=== PATIENT | female | born 1985 | race Caucasian/White ===

== ENCOUNTER → 2016-07-03 | Outpatient (CLI) | payer OTHER ==
--- NOTE | 2016-07-04 12:51 | ECHOF ---
Referral Reason:CP R07.9, Palpitations R00.2 MEASUREMENTS -------- HEIGHT: 167.6 cm WEIGHT: 61.2 kg BP: 115/56 RVIDd: 2.8 cm (< 3.3) IVSd: 0.7 cm (0.6 - 1.1) LVIDd: 3.8 cm (3.9 - 5.3) LVPWd: 0.8 cm (0.6 - 1.1) IVSs: 0.9 cm LVIDs: 2.9 cm LVPWs: 1.7 cm LA Diam: 2.8 cm (2.7 - 3.8) LAESV Index (A-L): 16.39 ml/m Ao Diam: 3.1 cm (2.0 - 3.7) AV Cusp: 2.3 cm (1.5 - 2.6) MV EXCURSION: 18.894 mm (> 18.000) MV EF SLOPE: 162 mm/s (70 - 150) EPSS: 0.2 cm MV E Calvin: 1.00 m/s MV DecT: 297 ms MV A Calvin: 0.63 m/s MV E/A Ratio: 1.58 RAP: 5.00 mmHg RVSP: 22.84 mmHg FINDINGS -------- Sinus rhythm. This was a technically good study. The left ventricular size is normal. Left ventricular wall thickness is normal. Overall left ventricular systolic function is normal with, an EF between 60 - 65 %. The right ventricle is normal in size. Normal LA size by volume 22+/-6 ml/m2. The right atrium is normal in size. The aortic valve is trileaflet and appears structurally normal. Normal appearing mitral valve. The tricuspid valve appears structurally normal. The pulmonic valve is normal. There is no pulmonic regurgitation present. The aortic root size is normal. The inferior vena cava is mildly dilated. There is no pericardial effusion. CONCLUSIONS -------- 1. Sinus rhythm. 2. Normal appearing mitral valve. 3. The tricuspid valve appears structurally normal. 4. The aortic root size is normal. 5. The inferior vena cava is mildly dilated. 6. There is no pericardial effusion. 7. This was a technically good study. 8. The left ventricular size is normal. 9. Left ventricular wall thickness is normal. 10. Overall left ventricular systolic function is normal with, an EF between 60 - 65 %. 11. The right ventricle is normal in size. 12. Normal LA size by volume 22+/-6 ml/m2. 13. The right atrium is normal in size. 14. The aortic valve is trileaflet and appears structurally normal. IMMIGRATION MANAGER: Aure Carballo RDCS
== END | disposition home or self-care (01) ==
LOC: RADECHMAIN 14:59
PROVIDERS: ATTEND Family Medicine
DX: R07.9 Chest pain, unspecified (principal); R00.2 Palpitations
CPT/HCPCS: 93306

== ENCOUNTER → 2017-04-13 | Outpatient (CLI) | payer OTHER ==
--- NOTE | 2017-04-16 08:12 | MM ---
Reason for exam: clinical finding. History: Patient is nulliparous. Family history of breast cancer in 2 maternal aunts at age 40. Indicated problem(s): lump or thickening in the right breast. Physical Findings: Nurse Summary: 0.5cm nodule in the right breast at 7 o'clock (nurse mj). MG 3D Diag Mammo W/Cad JULIÁN Bilateral CC and MLO view(s) were taken. The breast tissue is heterogeneously dense. This may lower the sensitivity of mammography. There is no discrete abnormality. These results were verbally communicated with the patient and result sheet given to the patient on 04/13/17. ASSESSMENT: Incomplete: need additional imaging evaluation, BI-RAD 0 RECOMMENDATION: Ultrasound of the right breast.
--- NOTE | 2017-04-16 08:36 | USB ---
Reason for exam: additional evaluation requested from abnormal screening. History: Patient is nulliparous. Family history of breast cancer in 2 maternal aunts at age 40. US Breast RT Right breast ultrasound includes all four quadrants, the retroareolar region and axilla. Finding demonstrates a 0.9 x 0.5 x 1.0cm oval, solid lesion at 8 o'clock 5cm from nipple, a 0.4 x 0.3 x 0.4cm oval, cystic lesion at 11 o'clock and a 0.9 x 0.3 x 0.6cm oval, cystic cluster at 10 o'clock. These results were verbally communicated with the patient and result sheet given to the patient on 04/13/17. ASSESSMENT: Suspicious, BI-RAD 4 RECOMMENDATION: Ultrasound core biopsy of the right breast. (8 o'clock) Called Dr. Anderson with mammographic findings and has scheduled an appointment for the patient for 04/24/17 at 11:[address] Ozuna. Biopsy scheduled for 04/18/17 at 2:20. PRELIMINARY REPORT CALLED AND FAXED TO DR. OZUNA ON 04/16/17.
== END | disposition home or self-care (01) ==
LOC: RADMAMWWP 08:53
PROVIDERS: ATTEND Obstetrics & Gynecology
DX: N60.01 Solitary cyst of right breast (principal); R92.8 Other abnormal and inconclusive findings on diagnostic imaging of breast
CPT/HCPCS: 77066; 76641; G0279

== ENCOUNTER → 2017-04-18 | Day surgery (SDC) | payer OTHER ==
[2017-04-18 13:52] VITALS: TEMP 98.1; BMI 22.4
[2017-04-18 15:46] VITALS: BP 115/67; PULSE 65; RESP 15
--- NOTE | 2017-04-18 16:40 | USB ---
EXAMINATION TYPE: US biopsy breast VAD RT DATE OF EXAM: 04/18/2017 CLINICAL HISTORY: R92.8 Abnormal Mammogram. Abnormal ultrasound. TECHNIQUE: Ultrasound guided core biopsy of right breast. COMPARISON: 04/13/2017 ultrasound FINDINGS: The procedure of ultrasound guided core biopsy was explained to the patient. Benefits, alternatives, and risks were discussed. An informed consent was then obtained. The patient was placed in supine positioning for imaging and for the procedure. The overlying skin was prepped and draped in usual sterile fashion. Lidocaine buffered with bicarbonate was used as anesthetic into the skin and subcutaneous tissue up to area of concern in the right breast. A johnathan was made with surgical scalpel. The lesion was raised with a bolus of lidocaine away from the chest wall. The mammotome needle was slid underneath this lesion but appear to follow a from the biopsy needle. Rotated towards the lesion and under ultrasound guidance 5 core samples were obtained. There is some diminished size of the lesion following biopsy. Under ultrasound guidance, a 12-gauge vacuum assisted biopsy gun device was used to obtain 5 core samples. Following this, a biopsy clip was left in the lesion. The patient tolerated the procedure well without any immediate complication. The patient was kept in the radiology department for short stay after the procedure and then discharged home in stable condition. Attempts of a postprocedure mammogram with localization of the placed clip was unsuccessful, likely due to patient body habitus. IMPRESSION: 1. Successful ultrasound-guided vacuum-assisted core biopsy right breast lesion. Pathology Results: Benign BREAST, RIGHT, CORE BIOPSY: FIBROCYSTIC CHANGE (STROMAL FIBROSIS, CYST FORMATION, ADENOSIS, COLUMNAR CELL CHANGE, AND DUCT HYPERPLASIA). Recommendation Follow up ultrasound of the right breast in 6 months. SKY
--- NOTE | 2017-04-20 12:06 | MM ---
Reason for exam: additional evaluation requested from abnormal screening. Last mammogram was performed less than 1 month ago. History: Patient is nulliparous. Family history of breast cancer in 2 maternal aunts at age 40. MG Diagnostic Mammo RT Wo CAD XCCL, MLO, and LM view(s) were taken of the right breast. Prior study comparison: April 13, 2017, bilateral MG 3d diag mammo w/cad JULIÁN. ASSESSMENT: Post procedure mammogram for marker placement RECOMMENDATION: Ultrasound of the right breast in 6 months. PENDING PATHOLOGY RESULTS.
== END ==
LOC: RADUSWWP 13:30
PROVIDERS: ATTEND Surgery
DX: N60.31 Fibrosclerosis of right breast (principal); N60.01 Solitary cyst of right breast; N60.21 Fibroadenosis of right breast; R92.8 Other abnormal and inconclusive findings on diagnostic imaging of breast; N60.91 Unspecified benign mammary dysplasia of right breast; Z80.3 Family history of malignant neoplasm of breast; Z88.2 Allergy status to sulfonamides
CPT/HCPCS: 88305; 77065; 19083; A4648; J2001

== ENCOUNTER 2017-05-15 07:25 | Day surgery (SDC) | payer OTHER ==
[2017-05-04 08:39] VITALS: BMI 22.4
[~2017-05-15 07:25] MED LIST: ALPRAZolam 0.5 MG TAB PO PRN; DEXAMETHASONE SOD PHOSPHATE 10 MG/ML 1 ML VIAL IV ONE; HYDROmorphone 0.5 MG/0.5 ML SYRINGE IVP PRN; LACTATED RINGERS 1,000 ML IV SCH; ONDANSETRON 4 MG/2 ML VIAL IVP ONE; Pre Op ABX Message 1 EACH MISC MISCELLANE ONE
[2017-05-15] MEDS ORDERED: SODIUM BICARB 4% 5 ML VIAL (0.48 MEQ/ML) MISCELLANE ONE (09:26)
[2017-05-15] MEDS ORDERED: LIDOCAINE 1% INJ 10MG/ML (20 ML MDV) SQ ONE ×2 (09:26→12:31)
[2017-05-15 09:58] VITALS: TEMP 98.3
[2017-05-15] MEDS ORDERED: HEPARIN SODIUM,PORCINE 5,000 UNIT/ML 1 ML VIAL SQ ONE (11:27)
--- NOTE | 2017-05-15 13:29 | P.OP ---
Date of Procedure: 05/15/17 Preoperative Diagnosis: Radiographic abnormality right breast as well as probable change at the site, patient underwent a core biopsy which was concern that this was discordant with radiographic findings she was therefore recommended to undergo an open biopsy with needle localization Postoperative Diagnosis: same Procedure(s) Performed: needle Localization excisional biopsy area of concern right breast Anesthesia: local Surgeon: April Crowley Estimated Blood Loss (ml): 2 IV fluids (ml): 100 Pathology: other (Breast tissue) Condition: stable Disposition: PACU Indications for Procedure: Radiographic abnormality right breast, core biopsy felt to be discordant and therefore frozen biopsy recommended after discussion with radiology Operative Findings: The radiographic abnormality in the right breast was localized via radiology. The patient was taken to the operating room and the right breast was prepped and draped in a sterile fashion. One percent lidocaine was used to anesthetize the area of concern. Incision was made and carried down to the needle. Surrounding tissue was excised. Within this tissue there appeared to be a palpable abnormality. The specimen was painted for orientation and sent to radiology; radiographic evidnce the area of concern had been removed was obtained. After being assured that hemostasis was attained the wound was well irrigated. Several deep sutures of 3-0 Vicryl were placed. This was followed by closure of the skin with 4-0 Monocryl. Steri-Strips were applied. The patient tolerated the procedure in stable condition. All instrument and sponge counts were correct at the end of the case.
--- NOTE | 2017-05-15 13:30 | P.DS ---
Providers Attending physician: April Crowley Primary care physician: Constantine Mcmullen Plan - Discharge Summary New Discharge Prescriptions: No Action Crd-Opfv-Srytc Acid [-U Capsule (formulary)] 1 cap PO DAILY Discharge Medication List Yur-Rcfc-Pkero Acid [-U Capsule (formulary)] 1 cap PO DAILY [History] Follow up Appointment(s)/Referral(s): April Crowley MD [STAFF PHYSICIAN] - 1 Week Activity/Diet/Wound Care/Special Instructions: may shower after 48 hours Discharge Disposition: HOME SELF-CARE
[2017-05-15 13:35] VITALS: PULSE 67
--- NOTE | 2017-05-15 13:50 | USB ---
EXAMINATION TYPE: US breast localization RT, Postprocedure digital right breast mammogram US breast surgical specimen RT Right breast specimen mammogram DATE OF EXAM: 05/15/2017 CLINICAL HISTORY: 31-year-old female with a family history of breast cancer in two aunts; recent ultrasound-guided right breast biopsy. Benign results which may be discordant, referred for excision. TECHNIQUE: Ultrasound-guided needle localization with wire placement and surgical excision of area of concern in the 8:00 right breast. COMPARISON: 04/18/2017 FINDINGS: The procedure of needle localization with wire placement and than surgical excision was explained to the patient. Benefits, alternatives, and risks were discussed. An informed consent was then obtained. Ultrasound guidance was utilized due to far posterior positioning of the clip. It could not be visualized on the postprocedure mammograms. The shortest pathway for procedure was chosen. Shortest pathway was a lateral approach. The overlying skin was prepped and draped in usual sterile fashion. Lidocaine buffered with bicarbonate was used as anesthetic into the skin and subcutaneous tissue up to the level of area of concern. A 5 cm Kopans needle was used. It was placed via a lateral approach under ultrasound guidance. The needle was passed through the lesion. The needle was withdrawn leaving the wire in place. The lesion was centered along the distal half thick segment of the wire. This was discussed with the surgeon. The wire was fixed to patient's skin. Ultrasound images were marked for the surgeon. Post procedure mammographic views were obtained for the surgeon. The patient tolerated the procedure well without any immediate complication. The patient was kept in the radiology department for short stay after the procedure and then taken to surgery for surgical excision. Mammographic specimen showed wire and clip. The ultrasound specimen showed appropriate excision of the lesion in question. The patient was kept in hospital for short stay after the procedure and then discharged home in stable condition. IMPRESSION: Successful, uncomplicated ultrasound-guided needle localization with wire placement and surgical excision of 8:00 right breast mass; full pathology results to follow. Pathology Results: Benign BREAST, RIGHT, NEEDLE LOCALIZATION EXCISION: PROLIFERATIVE FIBROCYSTIC CHANGES INCLUDING FOCAL NODULAR ADENOSIS AND FIBROADENOMATOID HYPERPLASIA, USUAL TYPE DUCTAL HYPERPLASIA, CYSTS, AND COLUMNAR CELL HYPERPLASIA. Recommendation Follow up mammogram of the right breast in 6 months. SKY
[2017-05-15 13:57] VITALS: BP 110/66; RESP 16
== END 2017-05-15 14:18 | disposition home or self-care (01) ==
LOC: OR 07:25
PROVIDERS: ATTEND Surgery
DX: N60.11 Diffuse cystic mastopathy of right breast (principal); N60.91 Unspecified benign mammary dysplasia of right breast; N60.21 Fibroadenosis of right breast; R00.2 Palpitations; Z88.1 Allergy status to other antibiotic agents; Z88.2 Allergy status to sulfonamides
CPT/HCPCS: 81025; 88307; 77065; 76098; 76999; 19285; 19125; J2001

== ENCOUNTER → 2017-11-15 | Outpatient (CLI) | payer OTHER ==
--- NOTE | 2017-11-16 10:48 | USB ---
Reason for exam: follow-up at short interval from prior study. History: Patient is nulliparous. Family history of breast cancer in 2 maternal aunts at age 40. Benign US breast surgical specimen RT of the right breast, May 15, 2017. Benign US breast localization RT of the right breast, May 15, 2017. Benign US biopsy breast VAD RT of the right breast, April 18, 2017. Physical Findings: Nurse did not find any significant physical abnormalities on exam. US Breast RT Right complete breast ultrasound includes all four quadrants, the retroareolar region and axilla. Finding demonstrates four oval, cystic lesions measuring 0.5 x 0.5 x 0.3cm at 9 o'clock, a 0.4 x 0.5 x 0.2cm at 10 o'clock, 1.0 x 1.2 x 0.4cm at 11 o'clock and 0.6 x 0.6 x 0.3cm at 11 o'clock. These results were verbally communicated with the patient and result sheet given to the patient on 11/15/17. ASSESSMENT: Probably benign, BI-RAD 3 RECOMMENDATION: Ultrasound of the right breast in 6 months.
== END | disposition home or self-care (01) ==
LOC: RADUSWWP 14:12
PROVIDERS: ATTEND Obstetrics & Gynecology
DX: R92.8 Other abnormal and inconclusive findings on diagnostic imaging of breast (principal)

== ENCOUNTER → 2018-02-25 | Outpatient (CLI) | payer OTHER ==
[2018-02-25 12:31] LABS: ALT 21 U/L (8-44); AST 25 U/L (13-35); Glucose 86 mg/dL (70-110)
[2018-02-25 12:32] LABS: Vitamin D 25 Hydroxy 23.1 ng/mL (30.0-100.0)
[2018-02-25 12:55] LABS: HCG,Quantitative Serum <2.0 mIU/mL
[2018-02-25 14:35] LABS: Thyroid Peroxidase Antibodies <28.0 U/mL (0.0-60.0)
[2018-02-25 14:38] LABS: Insulin Level 4.6 mIU/mL (3.0-25.0)
[2018-02-27 06:42] LABS: Varicella IgM Antibody 0.38 INDEX (<=0.90)
== END | disposition home or self-care (01) ==
LOC: LABWHC1 06:40
PROVIDERS: ATTEND Physician Assistant
DX: N92.6 Irregular menstruation, unspecified (principal)
CPT/HCPCS: 36415; 82306; 82397; 82565; 82670; 82947; 83001; 83036; 83525; 84146; 84402; 84403; 84439; 84443; 84450; 84460; 84481; 84520; 84702; 86376; 86762; 86787; 86800; 86850

== ENCOUNTER → 2018-03-21 | Outpatient (CLI) | payer OTHER | END | disposition home or self-care (01) | LOC: LABWHC1 09:56 | PROVIDERS: ATTEND Obstetrics & Gynecology Reproductive Endocrinology | DX: E03.9 Hypothyroidism, unspecified (principal) | CPT/HCPCS: 36415; 84443 ==

== ENCOUNTER → 2018-05-27 | Outpatient (CLI) | payer OTHER ==
--- NOTE | 2018-05-27 09:22 | USB ---
Reason for exam: clinical finding. History: Patient is nulliparous. Family history of breast cancer in 2 maternal aunts at age 40. Benign US breast surgical specimen RT of the right breast, May 15, 2017. Benign US breast localization RT of the right breast, May 15, 2017. Benign US biopsy breast VAD RT of the right breast, April 18, 2017. Physical Findings: Nurse Summary: Patient complains of bilateral upper outer quadrant lumps, stable in size (nurse mj). US Breast BILAT Right complete breast ultrasound includes all four quadrants, the retroareolar region and axilla. Finding demonstrates a 0.6 x 0.5 x 0.3cm oval, cystic, complex lesion at 9 o'clock, complicated cyst, a 1.0 x 1.5 x 0.5cm cystic cluster at 10 o'clock and a 0.9 x 0.8 x 0.4cm oval node at 10 o'clock. Left complete breast ultrasound includes all four quadrants, the retroareolar region and axilla. Finding demonstrates a 0.3 x 0.6 x 0.2cm oval, cystic complex lesion at 1 o'clock, complicated cyst and a 0.5 x 0.5 x 0.3cm oval, node at 3 o'clock. These results were verbally communicated with the patient and result sheet given to the patient on 05/27/18. ASSESSMENT: Benign, BI-RAD 2 RECOMMENDATION: Routine screening mammogram of both breasts. (annual)
== END ==
LOC: RADUSWWP 06:56
PROVIDERS: ATTEND Obstetrics & Gynecology
DX: N60.01 Solitary cyst of right breast (principal)

== ENCOUNTER → 2018-07-22 | Outpatient (CLI) | payer OTHER ==
[2018-07-22 11:40] LABS: Vitamin D 25 Hydroxy 27.1 ng/mL (30.0-100.0)
[2018-07-22 11:45] LABS: HCG,Quantitative Serum <2.0 mIU/mL
[2018-07-22 18:44] LABS: Hemoglobin A1C 5.3 % (4.0-6.0)
== END | disposition home or self-care (01) ==
LOC: LABWHC1 06:48
PROVIDERS: ATTEND Physician Assistant
DX: N92.6 Irregular menstruation, unspecified (principal)
CPT/HCPCS: 36415; 82306; 82670; 83001; 83036; 84146; 84439; 84443; 84481; 84702; 86787; 86850; 86900; 86901

== ENCOUNTER → 2018-08-06 | Outpatient (CLI) | payer OTHER | END | disposition home or self-care (01) | LOC: LABWHC1 06:47 | PROVIDERS: ATTEND Obstetrics & Gynecology Reproductive Endocrinology | DX: N97.9 Female infertility, unspecified (principal) | CPT/HCPCS: 36415; 84144 ==

== ENCOUNTER → 2018-08-13 | Outpatient (CLI) | payer OTHER ==
[2018-08-13 07:16] LABS: HCG,Quantitative Serum <2.4 mIU/mL
== END ==
LOC: LABWHC1 06:32
PROVIDERS: ATTEND Obstetrics & Gynecology Reproductive Endocrinology
DX: N97.9 Female infertility, unspecified (principal)
CPT/HCPCS: 36415; 84443; 84702

== ENCOUNTER → 2018-09-02 | Outpatient (CLI) | payer OTHER ==
[2018-09-02 08:00] LABS: Basophils % (A) 0 %; Eosinophils # (A) 0.1 k/uL (0-0.7); Eosinophils % (A) 3 %; HCT 42.3 % (34.0-46.0); HGB 14.2 gm/dL (11.4-16.0); Lymphocytes # (A) 1.2 k/uL (1.0-4.8); Lymphocytes % (A) 26 %; MCH 30.8 pg (25.0-35.0); MCHC 33.7 g/dL (31.0-37.0); MCV 91.5 fL (80.0-100.0); Mean Platelet Volume 7.1; Monocytes # (A) 0.3 k/uL (0-1.0); Monocytes % (A) 6 %; Neutrophils # (A) 2.9 k/uL (1.3-7.7); Neutrophils % (A) 63 %; Platelet Count 169 k/uL (150-450); RBC 4.62 m/uL (3.80-5.40); RDW 13.1 % (11.5-15.5); WBC 4.7 k/uL (3.8-10.6)
[2018-09-02 17:00] LABS: ALT 19 U/L (8-44); AST 22 U/L (13-35); Albumin/Globulin Ratio 2.05 (1.60-3.17); Alkaline Phosphatase 46 U/L (41-126); BUN/Creat Ratio 14.44 Ratio (12.00-20.00); Calcium 9.2 mg/dL (8.7-10.3); Carbon Dioxide 23.3 mmol/L (21.6-31.8); Chloride 108 mmol/L (96-109); Cholesterol 144 mg/dL (0-200); Globulin 2.1 g/dL (1.6-3.3); Glucose 88 mg/dL (70-110); Potassium 4.3 mmol/L (3.5-5.5); Sodium 139 mmol/L (135-145); Total Bilirubin 0.4 mg/dL (0.3-1.2); Total Protein 6.4 g/dL (6.2-8.2); Triglycerides <50.0 mg/dL (0.0-149.0); VLDL Calculation 9.98 mg/dL (5.00-40.00)
== END | disposition home or self-care (01) ==
LOC: LABWHC1 07:28
PROVIDERS: ATTEND Family Medicine
DX: Z00.00 Encounter for general adult medical examination without abnormal findings (principal); N97.9 Female infertility, unspecified
CPT/HCPCS: 36415; 80053; 80061; 82306; 84144; 85025

== ENCOUNTER → 2018-09-09 | Outpatient (CLI) | payer OTHER ==
[2018-09-09 08:12] LABS: HCG,Quantitative Serum <2.4 mIU/mL
== END | disposition home or self-care (01) ==
LOC: LABWHC1 07:00
PROVIDERS: ATTEND Obstetrics & Gynecology Reproductive Endocrinology
DX: Z32.00 Encounter for pregnancy test, result unknown (principal)
CPT/HCPCS: 36415; 84443; 84702

== ENCOUNTER → 2018-10-02 | Outpatient (CLI) | payer OTHER | END | disposition home or self-care (01) | LOC: LABWHC1 06:35 | PROVIDERS: ATTEND Obstetrics & Gynecology Reproductive Endocrinology | DX: N97.9 Female infertility, unspecified (principal) | CPT/HCPCS: 36415; 84144 ==

== ENCOUNTER → 2018-10-09 | Outpatient (CLI) | payer OTHER | END | disposition home or self-care (01) | LOC: LABWHC1 06:31 | PROVIDERS: ATTEND Obstetrics & Gynecology Reproductive Endocrinology | DX: Z32.00 Encounter for pregnancy test, result unknown (principal) | CPT/HCPCS: 36415; 84702 ==

== ENCOUNTER → 2018-11-02 | Outpatient (CLI) | payer OTHER | END | disposition home or self-care (01) | LOC: LABWHC1 08:54 | PROVIDERS: ATTEND Obstetrics & Gynecology Reproductive Endocrinology | DX: N97.9 Female infertility, unspecified (principal) | CPT/HCPCS: 36415; 84144 ==

== ENCOUNTER → 2018-11-09 | Outpatient (CLI) | payer OTHER | END | disposition home or self-care (01) | LOC: LABWHC1 09:23 | PROVIDERS: ATTEND Obstetrics & Gynecology Reproductive Endocrinology | DX: Z32.00 Encounter for pregnancy test, result unknown (principal) | CPT/HCPCS: 36415; 84702 ==

== ENCOUNTER → 2018-12-12 | Outpatient (CLI) | payer OTHER ==
[2018-12-13 11:15] LABS: Act Protein C Resist Interp NEG; Activated Protein C Resistance 3.69 (1.60-4.90)
== END | disposition home or self-care (01) ==
LOC: LABWHC1 13:54
PROVIDERS: ATTEND Obstetrics & Gynecology Reproductive Endocrinology
DX: N97.9 Female infertility, unspecified (principal); Z13.0 Encounter for screening for diseases of the blood and blood-forming organs and certain disorders involving the immune mechanism
CPT/HCPCS: 36415; 82397; 83001; 83002; 85307

== ENCOUNTER → 2018-12-20 | Outpatient (CLI) | payer OTHER ==
--- NOTE | 2018-12-20 17:04 | FL ---
EXAMINATION TYPE: FL hysterosalpingography DATE OF EXAM: 12/20/2018 CLINICAL HISTORY: Infertility N97.9. TECHNIQUE: The procedure was explained to the patient, risks complications and alternatives. All ques tions were answered. Informed consent was obtained. A timeout was performed. The patient was placed on the fluoroscopy table in supine view. The speculum was inserted. The vagina l vault was cleansed with Betadine. The cervix was localized. The hysterosalpingogram catheter was pl aced the balloon inflated and contrast was administered through the catheter. 8 mL of contrast was ut ilized. Real-time observation fluoroscopic imaging and overhead radiograph were obtained. Discharge instructions were discussed with the patient. Patient was released in stable condition mark watson tolerated procedure very well. COMPARISON: NONE FINDINGS: Cervical canal appears normal. The balloon was deflated and the cervix was evaluated with spontaneous drainage at the end of the examination. The uterus appears normal. No filling defects or septations are evident. The fallopian tubes are thin and delicate. There is prompt emptying of contrast from the left fallopi an tube with free spill into the pelvis. There is filling of the fimbria end of the right fallopian t ube. Clear spill from the right is difficult to prove definitively. However, fallopian tubes fill eas kathleen and there is increasing contrast within the pelvis. Additionally, suspicious loculated fluid in t he region of the ovaries is not identified. There is free spill of contrast through the pelvis. Fluoroscopy time 1 minute 9 seconds. Images: 14 IMPRESSION: 1. Definite free spill of contrast through the patent left fallopian tube. 2. Suspected patency with prompt fill and flow within the right fallopian tube. Documentation of free spill is more difficult on this right side, although no definite secondary signs to suggest distal o bstruction near the ovary is identified.
== END | disposition home or self-care (01) ==
LOC: RADUSWWP 13:26
PROVIDERS: ATTEND Obstetrics & Gynecology Reproductive Endocrinology
DX: N97.9 Female infertility, unspecified (principal)
CPT/HCPCS: 58340; 74740; Q9967

== ENCOUNTER → 2019-06-26 | Outpatient (CLI) | payer OTHER | END | disposition home or self-care (01) | LOC: LABWHC1 10:37 | PROVIDERS: ATTEND Obstetrics & Gynecology Reproductive Endocrinology | DX: Z13.21 Encounter for screening for nutritional disorder (principal); N97.9 Female infertility, unspecified | CPT/HCPCS: 36415; 82306; 84144 ==

== ENCOUNTER → 2019-06-30 | Outpatient (CLI) | payer OTHER | END | disposition home or self-care (01) | LOC: LABWHC1 11:58 | PROVIDERS: ATTEND Obstetrics & Gynecology Reproductive Endocrinology | DX: Z32.00 Encounter for pregnancy test, result unknown (principal) | CPT/HCPCS: 36415; 84702 ==

== ENCOUNTER → 2019-07-02 | Outpatient (CLI) | payer OTHER | END | disposition home or self-care (01) | LOC: LABWHC1 11:02 | PROVIDERS: ATTEND Obstetrics & Gynecology | DX: N91.2 Amenorrhea, unspecified (principal) | CPT/HCPCS: 36415; 84702 ==

== ENCOUNTER → 2020-06-07 | Outpatient (CLI) | payer OTHER ==
--- NOTE | 2020-06-07 11:01 | ECHOF ---
Referral Reason:R01.1 heart murmur MEASUREMENTS -------- HEIGHT: 167.6 cm WEIGHT: 68.0 kg BP: RVIDd: 3.7 cm (< 3.3) IVSd: 0.8 cm (0.6 - 1.1) LVIDd: 4.6 cm (3.9 - 5.3) LVPWd: 0.9 cm (0.6 - 1.1) IVSs: 1.0 cm LVIDs: 3.0 cm LVPWs: 1.4 cm LAESV Index (A-L): 25.31 ml/m Ao Diam: 2.5 cm (2.0 - 3.7) AV Cusp: 2.1 cm (1.5 - 2.6) MV EXCURSION: 21.333 mm (> 18.000) MV EF SLOPE: 86 mm/s (70 - 150) EPSS: 0.5 cm MV E Calvin: 0.89 m/s MV DecT: 235 ms MV A Calvin: 0.62 m/s MV E/A Ratio: 1.42 RAP: 5.00 mmHg RVSP: 29.89 mmHg FINDINGS -------- Sinus rhythm. This was a technically good study. The left ventricular size is normal. Left ventricular wall thickness is normal. Overall left vent ricular systolic function is normal with, an EF between 55 - 60 %. The diastolic filling pattern is normal for the age of the patient 7.70. The right ventricle is mildly enlarged. Normal LA size by volume 22+/-6 ml/m2. The right atrial size is normal. Interatrial and interventricular septum intact. The aortic valve is trileaflet and appears structurally normal. There is no evidence of aortic regu rgitation. There is no evidence of aortic stenosis. There is trace mitral regurgitation. Mild tricuspid regurgitation present. There is no evidence of pulmonary hypertension. The right v entricular systolic pressure, as measured by Doppler, is 29.89mmHg. There is no pulmonic regurgitation present. The aortic root size is normal. The inferior vena cava is mildly dilated. There is no pericardial effusion. CONCLUSIONS -------- 1. The left ventricular size is normal. 2. Left ventricular wall thickness is normal. 3. Overall left ventricular systolic function is normal with, an EF between 55 - 60 %. 4. The diastolic filling pattern is normal for the age of the patient 7.70 5. The right ventricle is mildly enlarged. 6. There is trace mitral regurgitation. 7. Mild tricuspid regurgitation present. INSOLE BOTTOM FILLER: Ashlyn Correa RDCS
== END ==
LOC: RADECHMAIN 08:23
PROVIDERS: ATTEND Family Medicine
DX: I08.1 Rheumatic disorders of both mitral and tricuspid valves (principal)
CPT/HCPCS: 93306

== ENCOUNTER → 2021-05-30 | Outpatient (CLI) | payer OTHER ==
--- NOTE | 2021-05-30 09:10 | USB ---
Reason for exam: clinical finding. History: Patient is nulliparous. Family history of breast cancer in 2 maternal aunts at age 40. Benign US breast surgical specimen RT of the right breast, May 15, 2017. Benign US breast localization RT of the right breast, May 15, 2017. Benign US biopsy breast VAD RT of the right breast, April 18, 2017. Physical Findings: A clinical breast exam by your physician is recommended on an annual basis and results should be correlated with mammographic findings. US Breast BILAT Right complete breast ultrasound includes all four quadrants, the retroareolar region and axilla. Finding demonstrates a 5 x 5mm oval lymph node at 9 o'clock. Left complete breast ultrasound includes all four quadrants, the retroareolar region and axilla. Finding demonstrates a 4 x 3mm oval lymph node at 3 o'clock and a 4 x 5mm lobular, hypoechoic lesion at 9 o'clock. These results were verbally communicated with the patient and result sheet given to the patient on 05/30/21. ASSESSMENT: Suspicious, BI-RAD 4 RECOMMENDATION: Surgical consultation and ultrasound core biopsy of the left breast. (mammogram can be performed pre and post biopsy) Patient requests to speak with her before scheduling biopsy. Called Dr. Dr. Ortiz's office with mammographic findings. PRELIMINARY REPORT CALLED AND FAXED TO DR. ORTIZ ON 05/30/21.
== END | disposition home or self-care (01) ==
LOC: RADUSWWP 07:38
PROVIDERS: ATTEND Obstetrics & Gynecology
DX: R92.8 Other abnormal and inconclusive findings on diagnostic imaging of breast (principal); Z80.3 Family history of malignant neoplasm of breast

== ENCOUNTER → 2021-10-28 | Outpatient (CLI) | payer OTHER ==
[2021-10-28 11:50] LABS: Basophils # (A) 0.03 X 10*3/uL (0.00-0.10); Basophils % (A) 0.8 %; Eosinophils # (A) 0.11 X 10*3/uL (0.04-0.35); Eosinophils % (A) 2.9 %; HCT 42.1 % (37.2-46.3); Immature Grans, Automated 0.3 %; Lymphocytes # (A) 1.01 X 10*3/uL (0.90-5.00); MCH 29.8 pg (27.0-32.0); MCHC 33.3 g/dL (32.0-37.0); MCV 89.6 fL (80.0-97.0); Mean Platelet Volume 11.3 fL (9.5-12.2); Monocytes # (A) 0.23 X 10*3/uL (0.20-1.00); Monocytes % (A) 6.1 %; NRBC Per 100 WBC 0 /100 WBCS (0.0-0.0); Neutrophils # (A) 2.35 X 10*3/uL (1.80-7.70); Neutrophils % (A) 62.9 %; Platelet Count 176 X 10*3/uL (140-440); RDW 13.2 % (11.5-14.5); WBC 3.74 X 10*3/uL (4.50-10.00)
[2021-10-28 12:02] LABS: Hepatitis B Surface Antigen Nonreactive (Nonreactive); Hepatitis C IgG Antibody Nonreactive (Nonreactive)
[2021-10-28 12:05] LABS: ALT 9 U/L (8-44); AST 22 U/L (13-35); African American GFR (CKD) 82.8 (60.0-200.0); Albumin 4.4 g/dL (3.8-4.9); Albumin/Globulin Ratio 1.57 (1.60-3.17); Alkaline Phosphatase 45 U/L (41-126); Blood Urea Nitrogen 14.9 mg/dL (9.0-27.0); Calcium 9.3 mg/dL (8.7-10.3); Carbon Dioxide 23.3 mmol/L (20.0-27.5); Chloride 105 mmol/L (96-109); Chol/HDL Ratio 2.36 Ratio; Follicle Stimulating Hormone 7.5 mIU/mL; Globulin 2.8 g/dL (1.6-3.3); Glucose 93 mg/dL (70-110); LDL Cholesterol,Calculated 84.8 mg/dL (0.0-131.0); Luteinizing Hormone 9.5 mIU/mL; Non-African American GFR(CKD) 71.4 (60.0-200.0); Potassium 3.9 mmol/L (3.5-5.5); Sodium 140 mmol/L (135-145); Total Protein 7.2 g/dL (6.2-8.2)
== END | disposition home or self-care (01) ==
LOC: LABWHC1 06:58
PROVIDERS: ATTEND Obstetrics & Gynecology Reproductive Endocrinology
DX: Z31.41 Encounter for fertility testing (principal); E03.9 Hypothyroidism, unspecified; E55.9 Vitamin D deficiency, unspecified; N97.9 Female infertility, unspecified
CPT/HCPCS: 36415; 80053; 80061; 82306; 82397; 83001; 83002; 84146; 84443; 85025; 86780; 86803; 87340

== ENCOUNTER → 2021-12-14 | Outpatient (CLI) | payer OTHER | END | disposition home or self-care (01) | LOC: LABWHC1 07:03 | PROVIDERS: ATTEND Obstetrics & Gynecology Reproductive Endocrinology | DX: N96 Recurrent pregnancy loss (principal); E03.9 Hypothyroidism, unspecified | CPT/HCPCS: 36415; 84443 ==

== ENCOUNTER → 2022-01-19 | Outpatient (CLI) | payer OTHER ==
[2022-01-19 13:21] LABS: HCG,Quantitative Serum 41.3 (0.0-6.0)
== END | disposition home or self-care (01) ==
LOC: LABWHC1 07:10
PROVIDERS: ATTEND Obstetrics & Gynecology Reproductive Endocrinology
DX: Z32.00 Encounter for pregnancy test, result unknown (principal); N97.9 Female infertility, unspecified; E03.9 Hypothyroidism, unspecified
CPT/HCPCS: 36415; 82670; 84144; 84443; 84702

== ENCOUNTER → 2022-01-23 | Outpatient (CLI) | payer OTHER | END | disposition home or self-care (01) | LOC: LABWHC1 06:59 | PROVIDERS: ATTEND Obstetrics & Gynecology Reproductive Endocrinology | DX: Z32.00 Encounter for pregnancy test, result unknown (principal) | CPT/HCPCS: 36415; 84702 ==

== ENCOUNTER 2022-08-14 15:56 | Outpatient (CLI) | payer OTHER ==
[2022-08-14] MEDS ORDERED: LACTATED RINGERS 1,000 ML IV SCH (17:00)
[2022-08-14] MEDS ORDERED: TERBUTALINE 1 MG/ML VIAL SQ STA (18:15)
[2022-08-14 19:26] VITALS: BP 122/61; PULSE 74; RESP 18; TEMP 98.4
--- NOTE | 2022-09-14 19:10 | P.MSEPDOC ---
Presenting Problems - Arrival Data Date of Arrival on Unit: 08/14/22 Time of Arrival on Unit: 15:56 Mode of Transport: Ambulatory - Complaint OB-Reason for Admission/Chief Complaint: Possible Onset of Labor Comment: contractions since 1000 this morning every few minutes, pt states isnt painful but feels tightening Medical History - Information : 2 Para: 1 Term: 1 : 0 Abortions: Spontaneous or Elective: 0 Number of Living Children: 1 - Gestational Age Gestational Age by EUGENE (wks/days): 33 Weeks and 4 Days - History Complications: Prior Review of Systems - Review of Systems Constitutional: No problems Breast: No problems ENT: No problems Cardiovascular: No problems Respiratory: No problems Gastrointestinal: No problems Genitourinary: No problems Musculoskeletal: No problems Neurological: No problems Skin: No problems Vital Signs - Temperature Temperature: 98.4 F Temperature Source: Temporal Artery Scan - Pulse Right Pulse Oximetery Pulse Rate: 74 Pulse Assessment Method: Pulse Oximetry - Respirations Respiratory Rate: 18 Oxygen Delivery Method: Room Air O2 Sat by Pulse Oximetry: 100 - Blood Pressure Right Arm Blood Pressure: 122/61 Blood Pressure Mean: 81 Blood Pressure Source: Automatic Cuff Medical Screen Scoring - Uterine Contractions Frequency From (mins): 2 Frequency To (mins): 4 Duration From (seconds): 40 Duration To (seconds): 60 Intensity: Mild Resting: Soft to palpation - Assessment - Baby A Baseline FHR: 135 Heart Rate - NICHD Category: Category I (Normal) NST: Reactive Physician Notification - Physician Notified Physician Notified Date: 08/14/22 Physician Notified Time: 16:25 Physician: Carol Camilo New Order Received: Yes - Notification Comment Comment: ffn negative, cervix closed, thick, high, terbutaline given and contractions better afterwards Maternal Triage Index - Maternal Triage Index Presenting for scheduled procedure w/no complaint: No - Stat/Priority 1 Stat Priority 1: No - Urgent/Priority 2 Urgent Priority 2: Yes Provider Notified: Carol Camilo Provider Notified Time: 16:25 Criteria Met for Priority 2: contractions and 33 4/7 weeks gestation Disposition - Disposition OB Disposition: Discharge to home Discharge Date: 08/14/22 Discharge Time: 19:00 I agree with the RN Medical Screening Exam: Yes Case reviewed; plan agreed upon as documented in EMR&OBIX.: Yes Diagnosis: RELATED CONDITIONS, UNSPECIFIED, THIRD TRIMESTER
== END 2022-08-14 19:00 | disposition home or self-care (01) ==
LOC: FBPOP 15:56
PROVIDERS: ATTEND Obstetrics & Gynecology
DX: O26.893 Other specified pregnancy related conditions, third trimester (principal); O34.219 Maternal care for unspecified type scar from previous cesarean delivery; Z3A.33 33 weeks gestation of pregnancy; Z88.2 Allergy status to sulfonamides
CPT/HCPCS: 59025; 99214; 96360; 96361; 96372; 82731; J3105

== ENCOUNTER 2022-09-21 10:11 | Inpatient (IN) | payer OTHER ==
[2022-09-20 11:28] VITALS: BMI 29.8
[2022-09-21] MEDS ORDERED: CITRIC ACID-SODIUM CITRATE 15 ML CUP PO ONE (10:31)
[2022-09-21] MEDS ORDERED: miSOPROStoL 200 MCG TAB PO PRN (10:31)
[2022-09-21] MEDS ORDERED: OXYTOCIN 10 UNIT/ML 1 ML VIAL IM PRN (10:31)
[2022-09-21] MEDS ORDERED: TRANEXAMIC 1,000 MG/100ML-NACL 1,000 MG in EMPTY BAG 1 BAG IV PRN (10:31)
[2022-09-21] MEDS ORDERED: CARBOPROST TROMETHAMINE 250 MCG/ML 1 ML AMP IM PRN (10:31)
[2022-09-21] MEDS ORDERED: METHYLERGONOVINE 0.2 MG/ML 1 ML AMP IM PRN (10:31)
[2022-09-21] MEDS: LACTATED RINGERS 1,000 ML IV SCH ×2 (10:40→13:10)
[2022-09-21 11:25] LABS: Basophils % (A) 0 %; Eosinophils # (A) 0.1 k/uL (0-0.7); Eosinophils % (A) 1 %; HGB 11.7 gm/dL (11.4-16.0); Lymphocytes # (A) 1.4 k/uL (1.0-4.8); Lymphocytes % (A) 13 %; MCHC 33.5 g/dL (31.0-37.0); MCV 86.6 fL (80.0-100.0); Monocytes # (A) 0.3 k/uL (0-1.0); Monocytes % (A) 3 %; Neutrophils # (A) 8.8 k/uL (1.3-7.7); Neutrophils % (A) 82 %; Platelet Count 181 k/uL (150-450); RBC 4.04 m/uL (3.80-5.40); RDW 13.8 % (11.5-15.5); WBC 10.7 k/uL (3.8-10.6)
[2022-09-21] MEDS ORDERED: DEXAMETHASONE SOD PHOSPHATE 4 MG/ML 1 ML VIAL ONE (12:10)
[2022-09-21] MEDS ORDERED: ONDANSETRON 4 MG/2 ML VIAL ONE (12:10)
[2022-09-21] MEDS ORDERED: PHENYLEPHRINE-0.9% NACL SYG 1,000 MCG/10 ML SYRINGE ONE (12:10)
[2022-09-21] MEDS ORDERED: MORPHINE SULFATE (PF) 0.3 MG/0.3 ML SYR ONE (12:10)
[2022-09-21] MEDS ORDERED: NALBUPHINE 10 MG/ML (10 ML MDV) ONE (12:10)
--- NOTE | 2022-09-21 13:01 | P.HPOB ---
History of Present Illness H&P Date: 09/21/22 Chief Complaint: IUP at 39 and 0/7 weeks, history of 1 desires repeat 37 yo at 39 0/7 weeks of gestation that presents to labor and delivery for scheduled repeat section. She has a prior c section for arrest of descent. She desires repeat section. she notes good FM, denies ctx she has been receiving routine care with myself. care have been essentially uncomplicated On bloodwork this patient has a blood type of A+, rubella status immune, B surface antigen negative, HIV negative, RPR is nonreactive, group beta strep cultures were positive. Review of Systems Constitutional: Denies chills, Denies fatigue, Denies fever Ears, nose, mouth and throat: Denies headache Cardiovascular: Reports leg edema Respiratory: Denies dyspnea Gastrointestinal: Denies constipation, Denies diarrhea, Denies nausea, Denies vomiting Genitourinary: Reports Past Medical History Past Medical History: No Reported History Additional Past Medical History / Comment(s): ON TIROSINT FOR FERTILITY ISSUES NOT THYROID ISSUES History of Any Multi-Drug Resistant Organisms: None Reported Past Surgical History: Breast Surgery, Section Additional Past Surgical History / Comment(s): rt breast core biopsy plus lumpectomy-benign. EXPLORATORY LAP WITH REMOVAL ENDOMETRIOSIS. UTERINE SEPTUM REPAIR Past Anesthesia/Blood Transfusion Reactions: No Reported Reaction Additional Past Anesthesia/Blood Transfusion Reaction / Comment(s): no hx blood transfusion Smoking Status: Never smoker - Past Family History Mother Family Medical History: No Reported History Medications and Allergies Home Medications Medication Instructions Recorded Confirmed Type Jmc-Amjz-Ysnut Acid 1 cap PO DAILY 04/16/17 09/21/22 History [-U Capsule (formulary)] Cholecalciferol (Vitamin D3) 1 tab PO DAILY 08/14/22 09/21/22 History [Vitamin D3] Levothyroxine Sodium [Tirosint] 25 mcg PO DAILY 08/14/22 09/21/22 History Magnesium 1 tab PO DAILY 08/14/22 09/21/22 History Docusate [Colace] 100 mg PO DAILY 09/20/22 09/21/22 History Allergies Allergy/AdvReac Type Severity Reaction Status Date / Time Sulfa (Sulfonamide Allergy Rash/Hives Verified 09/21/22 10:30 Antibiotics) Exam Osteopathic Statement: *. No significant issues noted on an osteopathic structural exam other than those noted in the History and Physical/Consult. Intake and Output 09/20/22 09/21/22 09/21/22 22:59 06:59 14:59 Other: Weight 83.915 kg Targeted physical exam is performed in this date and squad sergeant a well-nourished well-developed female in no acute distress, breathing is nonlabored, heart has a regular rate and rhythm, abdomen is gravid, +1 lower extremity edema is appreciated, heart tones are noted category 1 and she is not martin. Results Result Diagrams: 09/21/22 11:00 Abnormal Lab Results - Last 24 Hours (Table) 09/21/22 Range/Units 11:00 WBC 10.7 H (3.8-10.6) k/uL Neutrophils # 8.8 H (1.3-7.7) k/uL Assessment and Plan (1) Term Current Visit: Yes Status: Acute Code(s): Z34.90 - ENCNTR FOR SUPRVSN OF NORMAL , UNSP, UNSP TRIMESTER SNOMED Code(s): 63503095 (2) H/O section Current Visit: Yes Status: Acute Code(s): Z98.891 - HISTORY OF UTERINE SCAR FROM PREVIOUS SURGERY SNOMED Code(s): 917341927 Plan: 37-year-old at 39 0/7 weeks that presents to labor and delivery for scheduled repeat section. Patient is counseled on risks of including not limited to infection, bleeding, damage to bladder, bowel, ureteric injury injury upon entry to the abdomen is discussed. All questions are answered and patient wishes to proceed. Patient taken back to the operating suite for scheduled repeat section.
--- NOTE | 2022-09-21 13:05 | P.OP ---
Date of Procedure: 09/21/22 Preoperative Diagnosis: IUP at 39-0/7 weeks, history of 1, desires repeat Postoperative Diagnosis: Repeat section Procedure(s) Performed: Repeat section Anesthesia: spinal Surgeon: Carol Caimlo Plant Changer #1: Marilyn Bagley Estimated Blood Loss (ml): 486 IV fluids (ml): 1,300 Urine output (ml): 200 Pathology: none sent Condition: stable Disposition: observation Indications for Procedure: History of 1, desires repeat Operative Findings: Normal uterus tubes and ovaries are appreciated, viable female infant delivered at 1231, weight of 6 lbs. 12 oz., Apgars of 8 and 9 at one and 5 metastases are slightly. Description of Procedure: The patient was prepped and draped in the usual fashion after spinal anesthesia was administered by the anesthesia department. A Pfannenstiel incision was made and extended of the abdominal cavity without difficulty. The bladder peritoneum was elevatedand incised and reflected distally. A 2 cm incision was made in the transverse plane of the lower uterine segment to enter the uterus at which time clear fluid was noted. The incision was extended in both directions bluntly. The head was encountered within the field and delivered up and through the incision where the nose and mouth were thoroughly suctioned. Remainder of the infant was delivered onto the surgical field where the cord was doubly clamped, cut, and the infant was passed for resuscitative measures with weight and Apgars as noted above. A segment of cord was then doubly clamped, cut, and set aside should cord gases become necessary. The placenta was delivered manually, intact, and was grossly normal with a grossly normal three-vessel cord. The uterus was exteriorized and the interior cavity of the uterus swept of any remaining placental and membranous fragments with a laparotomy sponge. The margins of the incision were grasped with Allis clamps and the incision closed in 2 layers. First layer was a running locking layer of 0 vicryl from margin to margin followed by a second layer of imbricating 0 vicryl from margin to margin. Any small points of bleeding were then made hemostatic with the Bovie. Once hemostasis was achieved, the posterior cul-de-sac was suctioned with a guard and the uterine and ovarian findings are as noted above. The uterus was replaced within the abdominal cavity and the gutters swept of any remaining blood fluid or clot. The incision was again reexamined and hemostasis was noted to be excellent. Any small point of bleeding were made hemostatic with the Bovie. Once hemostasis was achieved the parietal peritoneum was loosely reapproximated. The layer of muscles were examined and made hemostatic with the Bovie. Attention was then turned to the fascia which was closed with 2 running stitches of 0 Vicryl proceeding from the lateral margins to the midpoint. The subcutaneous tissues were irrigated, made hemostatic with the Bovie, and reapproximated with a running stitch of 30 Vicryl. The skin was reapproximated with 4-0 Vicryl. Estimated blood loss for the case was approximately 486 mL. All sponge instrument and needle counts are correct. There were no complications. The patient tolerated the procedure well and proceeded to the recovery room in stable condition. Both mother and infant are resting comfortably in recovery.
[2022-09-21 13:37] VITALS: RESP 16
[2022-09-21] MEDS ORDERED: SIMETHICONE 80 MG CHEWABLE PO PRN (14:47)
[2022-09-21] MEDS ORDERED: METOCLOPRAMIDE 5 MG/ML 2 ML VIAL IVP PRN (14:47)
[2022-09-21] MEDS ORDERED: diphenhydrAMINE 25 MG CAP PO PRN (14:47)
[2022-09-21] MEDS ORDERED: NALOXONE 0.4 MG/ML 1 ML VIAL IV PRN (14:47)
[2022-09-21] MEDS ORDERED: diphenhydrAMINE 50 MG/ML 1 ML VIAL IVP PRN ×2 (14:47)
[2022-09-21] MEDS ORDERED: diphenhydrAMINE 50 MG CAP PO PRN (14:47)
[2022-09-21] MEDS ORDERED: ONDANSETRON 4 MG/2 ML VIAL IVP PRN ×2 (14:47→21:33)
[2022-09-21] MEDS ORDERED: ZOLPIDEM 5 MG TAB PO PRN (14:47)
[2022-09-21] MEDS ORDERED: OXYTOCIN 30 UNITS/500 ML NS 30 UNIT in SALINE 1 500ML.BAG IV SCH (15:00)
[2022-09-21] MEDS: ACETAMINOPHEN IV (For NPO) 1,000 MG in EMPTY BAG 1 BAG IVPB SCH ×2 (15:03→23:32)
[2022-09-21] MEDS: ACETAMINOPHEN TAB 500 MG TAB PO SCH ×2 (19:29→23:19)
[2022-09-21] MEDS: IBUPROFEN IV 800 MG in SODIUM CHLORIDE 0.9% 250 ML IV SCH (19:59)
[2022-09-21] MEDS: SENNOSIDES-DOCUSATE SODIUM 1 EACH TAB PO SCH (20:02)
[2022-09-21] MEDS: IBUPROFEN 600 MG TAB PO SCH (21:39)
[2022-09-22] MEDS: IBUPROFEN 600 MG TAB PO SCH ×3 (03:43→18:11)
[2022-09-22] MEDS: IBUPROFEN IV 800 MG in SODIUM CHLORIDE 0.9% 250 ML IV SCH ×2 (03:44→19:27)
[2022-09-22] MEDS: ACETAMINOPHEN TAB 500 MG TAB PO SCH ×3 (05:59→20:02)
[2022-09-22 07:05] LABS: Basophils % (A) 0 %; Eosinophils % (A) 0 %; HCT 33.9 % (34.0-46.0); HGB 11.4 gm/dL (11.4-16.0); Lymphocytes # (A) 1.5 k/uL (1.0-4.8); Lymphocytes % (A) 10 %; MCH 29.6 pg (25.0-35.0); MCHC 33.5 g/dL (31.0-37.0); MCV 88.3 fL (80.0-100.0); Mean Platelet Volume 9.8; Monocytes # (A) 0.6 k/uL (0-1.0); Monocytes % (A) 4 %; Neutrophils # (A) 12.8 k/uL (1.3-7.7); Neutrophils % (A) 86 %; Platelet Count 167 k/uL (150-450); RBC 3.84 m/uL (3.80-5.40); RDW 13.9 % (11.5-15.5); WBC 14.9 k/uL (3.8-10.6)
--- NOTE | 2022-09-22 07:12 | P.PN ---
Progress Note - Text 09/22/22 618am 37-year-old female status post by Dr. jenkins. Patient seen and evaluated for postop pain control patient has VAS of 1 with no complains of nausea vomiting and mild pruritus which should subside soon
[2022-09-22] MEDS: SENNOSIDES-DOCUSATE SODIUM 1 EACH TAB PO SCH ×2 (09:10→20:03)
--- NOTE | 2022-09-22 10:11 | P.PNOBGPC ---
Subjective - Subjective Principal diagnosis: Postop day 1, repeat section Interval history: Patient is doing well postoperatively. She is ambulating and voiding without difficulty. She is tolerating a regular diet without nausea or vomiting. She states her pain is well-controlled. She is breast-feeding without difficulty. Patient reports: Reports appetite normal, Reports voiding normally, Reports pain well controlled, Reports ambulating normally [place]: doing well, nursing well Objective - Vital Signs Latest vital signs: Vital Signs Temp Pulse Resp BP Pulse Ox 09/22/22 07:56 97.7 F 58 L 16 105/66 09/22/22 04:00 98.3 F 50 L 16 109/63 98 09/22/22 00:00 98.7 F 47 L 16 100/55 99 09/21/22 20:00 97.5 F L 57 L 16 98/59 100 09/21/22 16:00 97.2 F L 62 16 101/59 09/21/22 15:00 96.8 F L 49 L 16 112/62 99 09/21/22 14:30 76 16 101/55 99 09/21/22 14:00 63 16 113/58 98 09/21/22 13:45 74 16 99/53 99 09/21/22 13:30 60 16 99/54 98 09/21/22 13:15 67 16 120/56 98 09/21/22 13:00 97.0 F L 64 16 97/56 98 Intake and Output 09/21/22 09/22/22 09/22/22 22:59 06:59 14:59 Output Total 320 800 600 Balance -320 -800 -600 Output: Urine 300 800 600 Uretheral ([place]) 300 Output, Quantitative 20 Blood Loss Other: # Voids 1 - Exam Extremities: Present: normal, edema Abdomen: Present: normal appearance, soft Incision: Present: normal, dry, intact Uterus: Present: normal, firm - Labs Labs: Abnormal Lab Results - Last 24 Hours (Table) 09/21/22 09/22/22 Range/Units 11:00 06:19 WBC 10.7 H 14.9 H (3.8-10.6) k/uL Hct 33.9 L (34.0-46.0) % Neutrophils # 8.8 H 12.8 H (1.3-7.7) k/uL Assessment and Plan (1) Term Current Visit: Yes Status: Acute Code(s): Z34.90 - ENCNTR FOR SUPRVSN OF NORMAL , UNSP, UNSP TRIMESTER SNOMED Code(s): 83250089 (2) H/O section Current Visit: Yes Status: Acute Code(s): Z98.891 - HISTORY OF UTERINE SCAR FROM PREVIOUS SURGERY SNOMED Code(s): 033386311 (3) S/P section Current Visit: Yes Status: Acute Code(s): Z98.891 - HISTORY OF UTERINE SCAR FROM PREVIOUS SURGERY SNOMED Code(s): 133159611 Plan: Patient is doing well postoperatively. We'll plan to continue routine postoperative care, and to stay discharge home tomorrow.
[2022-09-22] MEDS: LACTATED RINGERS 1,000 ML IV SCH ×2 (19:26→19:27)
[2022-09-22] MEDS: PRENATAL VIT-IRON-FOLIC ACID 1 EACH TABLET PO SCH (20:06)
[2022-09-23] MEDS: IBUPROFEN 600 MG TAB PO SCH ×2 (00:02→06:27)
[2022-09-23] MEDS: IBUPROFEN IV 800 MG in SODIUM CHLORIDE 0.9% 250 ML IV SCH ×3 (00:21→10:09)
[2022-09-23] MEDS: LACTATED RINGERS 1,000 ML IV SCH (00:56)
[2022-09-23] MEDS: ACETAMINOPHEN TAB 500 MG TAB PO SCH ×3 (03:55→10:07)
[2022-09-23] MEDS: SENNOSIDES-DOCUSATE SODIUM 1 EACH TAB PO SCH (10:06)
[2022-09-23] MEDS: PRENATAL VIT-IRON-FOLIC ACID 1 EACH TABLET PO SCH (10:06)
[2022-09-23 10:25] VITALS: BP 110/66; PULSE 62; TEMP 98.2
--- NOTE | 2022-09-23 11:38 | P.DS ---
Providers Date of admission: 09/21/22 10:11 Expected date of discharge: 09/23/22 Attending physician: Carol Camilo Primary care physician: Stated None - Discharge Diagnosis(es) (1) S/P section Current Visit: Yes Status: Acute Hospital Course: The patient is a 37-year-old 2 para 1001 admitted at 39-0/7 weeks by good dating parameters. She has a history of a previous section and has requested repeat. On labor and delivery, all signs reassuring with a category 1 heart rate tracing. She was taken to the operating room where she underwent repeat low transverse section and uncomplicated fashion and was delivered of a viable 6 lbs. 12 oz. baby girl with Apgars of 8 at 1 minute and 9 at 5 minutes. Her postoperative course was unremarkable with vital signs remaining stable and her temperature was afebrile throughout. She was deemed stable for discharge on postoperative day #2 was discharged home to follow-up in the office in 2 weeks for an incision check and 6 weeks routinely. Discharge instructions included calling for any significantly increased bleeding or foul-smelling lochia, significantly increased fever or abdominal pain, perineal complaints, breast complaints, incisional complaints, or anything also concerned her. She was additionally instructed to have nothing in the vagina for at least 6 weeks time to include intercourse and to abstain from any heavy lifting over the same period of time. She was last instructed to do no driving until off of all pain medications or 2 weeks' time, whichever came first. She understood all of her instructions and agrees to follow up as noted above. Discharge medications included [id number] analgesic pain medications as well as a prescription for [place] 5/325 mg, 1-2 by mouth every 6 hours when necessary pain, #20 dispensed with no refills. Maternal blood type is A+ and rubella status is immune. Discharge hemoglobin and hematocrit were 11.4 and 33.9 respectively. Procedures: #1. Repeat low transverse section Patient Condition at Discharge: Stable Plan - Discharge Summary Discharge Rx Participant: Yes New Discharge Prescriptions: No Action Eqm-Phbb-Kwwse Acid [-U Capsule (formulary)] 1 cap PO DAILY Levothyroxine Sodium [Tirosint] 25 mcg PO DAILY Cholecalciferol (Vitamin D3) [Vitamin D3] 1 tab PO DAILY Magnesium 1 tab PO DAILY Docusate [Colace] 100 mg PO DAILY Discharge Medication List Bdw-Zyfz-Nptiw Acid [-U Capsule (formulary)] 1 cap PO DAILY 04/16/17 [History] Cholecalciferol (Vitamin D3) [Vitamin D3] 1 tab PO DAILY 08/14/22 [History] Levothyroxine Sodium [Tirosint] 25 mcg PO DAILY 08/14/22 [History] Magnesium 1 tab PO DAILY 08/14/22 [History] Docusate [Colace] 100 mg PO DAILY 09/20/22 [History] Follow up Appointment(s)/Referral(s): Carol Camilo DO [Doctor of Osteopathic Medicine] - 2 Weeks Patient Instructions/Handouts: (DC) Discharge Disposition: HOME SELF-CARE
== END 2022-09-23 12:00 | disposition home or self-care (01) | DRG 788 ==
LOC: 4FBP 10:11
PROVIDERS: ADMIT Obstetrics & Gynecology Obstetrics; ATTEND Obstetrics & Gynecology Obstetrics
PROC: 10D00Z1 Extraction of Products of Conception, Low, Open Approach (ICD-10-PCS; principal; 2022-09-21 12:00)
DX: O34.03 Maternal care for unspecified congenital malformation of uterus, third trimester (principal); O34.211 Maternal care for low transverse scar from previous cesarean delivery; Z37.0 Single live birth; Z3A.39 39 weeks gestation of pregnancy; Z79.890 Hormone replacement therapy; Z79.899 Other long term (current) drug therapy; Z87.42 Personal history of other diseases of the female genital tract
CPT/HCPCS: 85025; 86850; 86900; 86901

== ENCOUNTER → 2022-12-04 | Outpatient (CLI) | payer OTHER ==
[2022-12-04 10:57] LABS: Basophils # (A) 0.03 X 10*3/uL (0.00-0.10); Basophils % (A) 0.6 %; Eosinophils # (A) 0.23 X 10*3/uL (0.04-0.35); Eosinophils % (A) 4.9 %; HCT 44.1 % (37.2-50.0); HGB 14.2 d/dL (12.0-17.0); Lymphocytes # (A) 1.57 X 10*3/uL (0.90-5.00); Lymphocytes % (A) 33.2 %; MCH 28.4 pg (27.0-32.0); MCHC 32.2 d/dL (32.0-37.0); MCV 88.2 FL (80.0-97.0); Mean Platelet Volume 10.8 FL (9.5-12.2); Monocytes # (A) 0.31 X 10*3/uL (0.20-1.00); Monocytes % (A) 6.6 %; NRBC Per 100 WBC 0 X 10*3/uL (0.00-0.01); Neutrophils # (A) 2.58 X 10*3/uL (1.80-7.70); Neutrophils % (A) 54.5 %; Platelet Count 230 X 10*3/uL (140-440); RDW 15.4 % (11.5-14.5); WBC 4.73 X 10*3/uL (4.50-10.00)
[2022-12-04 11:32] LABS: ALT 29 U/L (8-49); AST 26 U/L (13-35); Albumin 4.7 d/dL (3.8-4.9); Albumin/Globulin Ratio 1.88 Ratio (1.60-3.17); Alkaline Phosphatase 61 U/L (41-126); Blood Urea Nitrogen 15.7 mg/dL (9.0-27.0); Calcium 9.7 mg/dL (8.7-10.3); Carbon Dioxide 25.6 mmol/L (21.6-31.8); Chloride 104 mmol/L (96-109); Chol/HDL Ratio 2.59 Ratio; Globulin 2.5 d/dL (1.6-3.3); Glucose 80 mg/dL (70-110); LDL Cholesterol,Calculated 120.9 mg/dL (0.0-131.0); Potassium 4.3 mmol/L (3.5-5.5); Sodium 140 mmol/L (135-145); T4, Free (Free Thyroxine) 1.07 ng/dL (0.80-1.80); Total Bilirubin 0.5 mg/dL (0.3-1.2); Total Protein 7.2 d/dL (6.2-8.2)
== END | disposition home or self-care (01) ==
LOC: LABWHC1 07:58
PROVIDERS: ATTEND Obstetrics & Gynecology Obstetrics
DX: Z00.00 Encounter for general adult medical examination without abnormal findings (principal); E03.9 Hypothyroidism, unspecified; E55.9 Vitamin D deficiency, unspecified; R79.89 Other specified abnormal findings of blood chemistry
CPT/HCPCS: 36415; 80053; 80061; 82306; 84439; 84443; 85025

== ENCOUNTER → 2023-12-25 | Outpatient (CLI) | payer OTHER ==
[2023-12-25 11:22] LABS: Basophils # (A) 0.03 X 10*3/uL (0.00-0.10); Basophils % (A) 0.6 %; Eosinophils # (A) 0.21 X 10*3/uL (0.04-0.35); Eosinophils % (A) 4.5 %; HCT 43.3 % (37.2-50.0); HGB 14.3 g/dL (12.0-17.0); Lymphocytes # (A) 1.58 X 10*3/uL (0.90-5.00); Lymphocytes % (A) 33.7 %; MCH 30.2 pg (27.0-32.0); MCV 91.4 FL (80.0-97.0); Mean Platelet Volume 10.8 FL (9.5-12.2); Monocytes # (A) 0.32 X 10*3/uL (0.20-1.00); Monocytes % (A) 6.8 %; NRBC Per 100 WBC 0 X 10*3/uL (0.00-0.01); Neutrophils # (A) 2.54 X 10*3/uL (1.80-7.70); Neutrophils % (A) 54.2 %; Platelet Count 208 X 10*3/uL (140-440); RBC 4.74 X 10*6/uL (4.10-5.60); RDW 13.1 % (11.5-14.5); WBC 4.69 X 10*3/uL (4.50-10.00)
[2023-12-25 11:55] LABS: ALT 14 U/L (8-49); AST 18 U/L (13-35); Albumin 4.3 g/dL (3.8-4.9); Albumin/Globulin Ratio 1.79 Ratio (1.60-3.17); Alkaline Phosphatase 56 U/L (41-126); BUN/Creat Ratio 19.62 Ratio (12.00-20.00); Blood Urea Nitrogen 15.7 mg/dL (9.0-27.0); Calcium 9.1 mg/dL (8.7-10.3); Carbon Dioxide 26.4 mmol/L (21.6-31.8); Chloride 106 mmol/L (96-109); Chol/HDL Ratio 2.31 Ratio; Globulin 2.4 g/dL (1.6-3.3); Glucose 93 mg/dL (70-110); LDL Cholesterol,Calculated 91.7 mg/dL (0.0-131.0); Potassium 4.2 mmol/L (3.5-5.5); Sodium 142 mmol/L (135-145); Total Bilirubin 0.3 mg/dL (0.3-1.2); Total Protein 6.7 g/dL (6.2-8.2)
== END | disposition home or self-care (01) ==
LOC: LABWHC1 06:51
PROVIDERS: ATTEND Family Medicine
DX: Z00.00 Encounter for general adult medical examination without abnormal findings (principal); E55.9 Vitamin D deficiency, unspecified; E03.9 Hypothyroidism, unspecified; E78.00 Pure hypercholesterolemia, unspecified
CPT/HCPCS: 36415; 80053; 80061; 82306; 84443; 85025